=== PATIENT | female | born 1995 | race Hispanic/Latino ===

== ENCOUNTER 2021-05-30 13:16 | Emergency (ER) | payer OTHER ==
[2021-05-30] MEDS ORDERED: Fluorescein Opthalmic Strip ONE (14:16)
[2021-05-30] MEDS ORDERED: Tetracaine 0.5% PF 4 ML BOT ONE (14:16)
== END 2021-05-30 15:29 | disposition home or self-care (01) ==
LOC: CSHERS 13:16
DX: H01.003 Unspecified blepharitis right eye, unspecified eyelid (principal)
CPT/HCPCS: 99283